=== PATIENT | male | born 1990 | race African-American/Black ===

== ENCOUNTER 2021-03-27 05:48 | Emergency (ER) | payer OTHER ==
[~2021-03-27] VITALS: Ht 188 cm; Wt 85.7 kg
--- NOTE | 2021-03-27 06:01 | NUR ---
MD Mariscal in room to do MSE.
[2021-03-27] MEDS ORDERED: OXYC-128 PO (06:11)
[2021-03-27] MEDS ORDERED: PROC-11 PO (06:11)
[2021-03-27] MEDS ORDERED: HYDROMORPHONE 1 MG/1 ML DISP.SYRIN IM ONE (06:15)
[2021-03-27] MEDS ORDERED: PROCHLORPERAZINE EDISYLATE 10 MG/2 ML VIAL IM ONE (06:15)
[2021-03-27] MEDS ORDERED: HYDROMORPHONE 1 MG/1 ML DISP.SYRIN ONE (06:18)
[2021-03-27] MEDS ORDERED: PROCHLORPERAZINE EDISYLATE 10 MG/2 ML VIAL ONE (06:18)
[2021-03-27 06:25] VITALS: BP 106/82
--- NOTE | 2021-03-27 06:25 | NUR ---
Patient discharged to home in stable condition. Written and verbal after care instructions given. Patient verbalizes understanding of instructions. Stressed follow up or return to ER for worsening s/s. Patient ambulates with steady gait, V/S stable, received paper Rx, and left with all belongings.
== END 2021-03-27 06:25 | disposition home or self-care (01) ==
LOC: ER 05:51
DX: M54.2 Cervicalgia (principal); M54.9 Dorsalgia, unspecified; V89.2XXA Person injured in unspecified motor-vehicle accident, traffic, initial encounter; Y92.410 Unspecified street and highway as the place of occurrence of the external cause
CPT/HCPCS: 96372 ×2; 99284; J0780; J1170; A4663

== ENCOUNTER 2021-06-18 01:49 | Emergency (ER) | payer OTHER ==
[~2021-06-18] VITALS: Ht 185.4 cm; Wt 86.2 kg
[~2021-06-18 01:49] MED LIST: OXYC-128 PO; PROC-11 PO
--- NOTE | 2021-06-18 02:08 | NUR ---
Dr. Mariscal at bedside for MSE.
[2021-06-18] MEDS ORDERED: HYDROMORPHONE 1 MG/1 ML DISP.SYRIN IM ONE (02:15)
[2021-06-18] MEDS ORDERED: PROCHLORPERAZINE MALEATE 5 MG TABLET PO ONE (02:15)
[2021-06-18] MEDS ORDERED: OXYC-128 PO (02:15)
[2021-06-18] MEDS ORDERED: PROC10TA29 PO (02:15)
[2021-06-18] MEDS ORDERED: KETOROLAC TROMETHAMINE 60 MG INJ IM ONE ×2 (02:15→02:24)
[2021-06-18] MEDS ORDERED: HYDROMORPHONE 2 MG/1 ML DISP.SYRIN ONE (02:23)
[2021-06-18] MEDS ORDERED: PROCHLORPERAZINE MALEATE 5 MG TABLET ONE (02:24)
[2021-06-18] MEDS ORDERED: HYDROMORPHONE 1 MG/1 ML DISP.SYRIN ONE (02:24)
[2021-06-18 02:42] VITALS: BP 125/78
--- NOTE | 2021-06-18 02:42 | NUR ---
Patient discharged to home in stable condition. Written and verbal after care instructions given. Patient verbalizes understanding of instructions. Stressed follow up or return to ER for worsening s/s.
== END 2021-06-18 02:44 | disposition home or self-care (01) ==
LOC: ER 01:54
DX: M54.2 Cervicalgia (principal); M54.9 Dorsalgia, unspecified
CPT/HCPCS: 96372 ×2; 99284; J1170 ×2; J1885; J8499; A4663

== ENCOUNTER 2021-09-11 20:10 | Emergency (ER) | payer OTHER ==
[~2021-09-11] VITALS: Ht 185.4 cm; Wt 77.1 kg
[~2021-09-11 20:10] MED LIST changes: +PROC10TA29 PO
--- NOTE | 2021-09-11 22:01 | NUR ---
Dr. Silva at bedside for MSE.
[2021-09-11] MEDS ORDERED: KETOROLAC TROMETHAMINE 60 MG INJ IM ONE ×2 (22:15→22:41)
[2021-09-12 00:12] LABS: HEMATOCRIT 43.2 % (36.7-47.1); MEAN CORPUSCULAR HEMOGLOBIN 31.4 uug (23.8-33.4); MEAN CORPUSCULAR VOLUME 94.5 fL (73.0-96.2); PLATELET COUNT (AUTO) 174 K/uL (152-348)
[2021-09-12] MEDS ORDERED: NAPR-1164 PO (00:24)
[2021-09-12 00:27] VITALS: BP 118/81
--- NOTE | 2021-09-12 00:27 | NUR ---
Patient discharged to home in stable condition. Written and verbal after care instructions given. Patient verbalizes understanding of instructions. Stressed follow up or return to ER for worsening s/s. Patient out of ER with steady gait, no acute signs of distress, VSS, all belongings taken.
[2021-09-12 01:09] LABS: POTASSIUM 3.6 mmol/L (3.5-5.1)
[2021-09-12 01:10] LABS: BILIRUBIN,TOTAL 0.4 mg/dL (0.2-1.0)
[2021-09-12 01:11] LABS: TOTAL PROTEIN, SERUM 6.7 g/dL (6.4-8.2)
== END 2021-09-12 00:28 | disposition home or self-care (01) ==
LOC: ER 20:12
DX: M79.10 Myalgia, unspecified site (principal); Z79.899 Other long term (current) drug therapy
CPT/HCPCS: 36415; 72072; 72110; 72220; 80053; 82550; 85025; 96372; 99284; J1885; A4663